=== PATIENT | female | born 1995 | race Caucasian/White ===

== ENCOUNTER → 2025-02-02 15:42 | Outpatient (REF) | payer OTHER, SELFPAY | LOC: PNTC 15:42 | PROVIDERS: ATTENDING PHYSICIAN Obstetrics & Gynecology | DX: O99.212 Obesity complicating pregnancy, second trimester (principal); E66.01 Morbid (severe) obesity due to excess calories; Z36.3 Encounter for antenatal screening for malformations; Z36.86 Encounter for antenatal screening for cervical length | CPT/HCPCS: 76811; 76817 ==

== ENCOUNTER → 2025-02-16 16:25 | Outpatient (REF) | payer OTHER, SELFPAY | LOC: PNTC 16:25 | PROVIDERS: ATTENDING PHYSICIAN Obstetrics & Gynecology | DX: O99.213 Obesity complicating pregnancy, third trimester (principal); E66.01 Morbid (severe) obesity due to excess calories; O35.5XX0 Maternal care for (suspected) damage to fetus by drugs, not applicable or unspecified | CPT/HCPCS: 76815 ==

== ENCOUNTER → 2025-03-02 17:14 | Outpatient (REF) | payer OTHER, SELFPAY | LOC: PNTC 17:14 | PROVIDERS: ATTENDING PHYSICIAN Obstetrics & Gynecology | DX: O99.213 Obesity complicating pregnancy, third trimester (principal) | CPT/HCPCS: 76816 ==

== ENCOUNTER 2025-03-10 12:40 | Observation (INO) | payer OTHER, SELFPAY ==
[2025-03-10 13:00] VITALS: BP 125/73; BMI 52.3
== END 2025-03-10 14:30 | disposition home or self-care (01) ==
LOC: LDRP 12:40
PROVIDERS: ADMITTING PHYSICIAN Student in an Organized Health Care Education/Training Program
DX: O36.8120 Decreased fetal movements, second trimester, not applicable or unspecified (principal); Z3A.26 26 weeks gestation of pregnancy; Z91.018 Allergy to other foods; O99.212 Obesity complicating pregnancy, second trimester
CPT/HCPCS: 59025; 76815; G0378

== ENCOUNTER → 2025-03-21 07:23 | Outpatient (REF) | payer OTHER, SELFPAY | LOC: PNTC 07:23 | PROVIDERS: ATTENDING PHYSICIAN Obstetrics & Gynecology | DX: Z34.82 Encounter for supervision of other normal pregnancy, second trimester (principal) | CPT/HCPCS: 36415; 86850; 86900; 86901; 96372; J2790 ==

== ENCOUNTER → 2025-03-30 08:07 | Outpatient (REF) | payer OTHER, SELFPAY | LOC: PNTC 08:07 | PROVIDERS: ATTENDING PHYSICIAN Obstetrics & Gynecology | DX: O35.5XX0 Maternal care for (suspected) damage to fetus by drugs, not applicable or unspecified (principal); O99.213 Obesity complicating pregnancy, third trimester; E66.01 Morbid (severe) obesity due to excess calories | CPT/HCPCS: 76816 ==

== ENCOUNTER 2025-04-20 09:12 | Observation (INO) | payer OTHER, SELFPAY ==
[2025-04-20 09:39] LABS: Hematocrit 30.9 % (37.0-47.0); Hemoglobin 10.3 g/dL (12.0-16.0); Mean Corp Hgb Conc. 33.3 g/dL (33.0-37.0); Mean Corpuscular Volume 85.4 fL (81.0-99.0); Platelet Count 239 10^3/uL (130-400); Red Cell Dist. Width 13.4 % (11.5-14.5)
[2025-04-20 09:51] VITALS: BP 149/90; BMI 53.4
[2025-04-20 09:57] LABS: ALT (SGPT) 12 U/L (0-35); AST (SGOT) 15 U/L (14-36); Albumin 3.6 g/dl (3.5-5.0); Alkaline Phosphatase 58 U/L (38-126); Blood Urea Nitrogen 6 mg/dl (7-17); Calcium 9.2 mg/dl (8.4-10.2); Carbon Dioxide 23 mmol/L (22-30); Chloride 108 mmol/L (98-107); Glucose 116 mg/dl (70-99); Potassium 3.7 mmol/L (3.5-5.1); Sodium 135 mmol/L (135-145); Total Protein 6.4 g/dl (6.3-8.2); eGFR > 60.00
== END 2025-04-20 12:50 | disposition home or self-care (01) ==
LOC: PNTC-IN 09:12
PROVIDERS: ADMITTING PHYSICIAN Student in an Organized Health Care Education/Training Program; ATTENDING PHYSICIAN Obstetrics & Gynecology
DX: O14.03 Mild to moderate pre-eclampsia, third trimester (principal); Z3A.32 32 weeks gestation of pregnancy; O99.213 Obesity complicating pregnancy, third trimester; Z91.018 Allergy to other foods; Z79.82 Long term (current) use of aspirin; Z79.899 Other long term (current) drug therapy
CPT/HCPCS: 59025; 76818; 80053; 82570; 84156; 85027; G0378

== ENCOUNTER → 2025-04-24 09:36 | Outpatient (REF) | payer OTHER, SELFPAY | LOC: PNTC 09:36 | PROVIDERS: ATTENDING PHYSICIAN Obstetrics & Gynecology | DX: O14.13 Severe pre-eclampsia, third trimester (principal) | CPT/HCPCS: 59025 ==

== ENCOUNTER → 2025-04-27 07:54 | Outpatient (REF) | payer OTHER, SELFPAY ==
[2025-04-27 08:46] LABS: Urine Character Clear (Clear)
[2025-04-27 08:47] LABS: Hematocrit 29.4 % (37.0-47.0); Hemoglobin 9.8 g/dL (12.0-16.0); Mean Corp Hgb Conc. 33.3 g/dL (33.0-37.0); Mean Corpuscular Volume 85.7 fL (81.0-99.0); Nucleated Red Blood Cells % 0 %; Platelet Count 229 10^3/uL (130-400); Red Cell Dist. Width 13.5 % (11.5-14.5)
[2025-04-27 10:33] LABS: ALT (SGPT) 12 U/L (0-35); AST (SGOT) 16 U/L (14-36); Albumin 3.4 g/dl (3.5-5.0); Alkaline Phosphatase 67 U/L (38-126); Blood Urea Nitrogen 6 mg/dl (7-17); Calcium 9.1 mg/dl (8.4-10.2); Carbon Dioxide 23 mmol/L (22-30); Chloride 106 mmol/L (98-107); Glucose 93 mg/dl (70-99); Potassium 4.1 mmol/L (3.5-5.1); Sodium 134 mmol/L (135-145); Total Protein 6.2 g/dl (6.3-8.2); Uric Acid 3.5 mg/dl (2.5-6.2); eGFR > 60.00
== END ==
LOC: PNTC 07:54
PROVIDERS: ATTENDING PHYSICIAN Obstetrics & Gynecology
DX: O99.213 Obesity complicating pregnancy, third trimester (principal); E66.01 Morbid (severe) obesity due to excess calories; O35.5XX0 Maternal care for (suspected) damage to fetus by drugs, not applicable or unspecified
CPT/HCPCS: 36415; 59025; 76816; 80053; 81003; 82570; 84156; 84550; 85025

== ENCOUNTER → 2025-05-01 16:23 | Outpatient (REF) | payer OTHER, SELFPAY | LOC: PNTC 16:23 | PROVIDERS: ATTENDING PHYSICIAN Student in an Organized Health Care Education/Training Program | DX: O14.03 Mild to moderate pre-eclampsia, third trimester (principal) | CPT/HCPCS: 59025 ==

== ENCOUNTER → 2025-05-04 07:50 | Outpatient (REF) | payer OTHER, SELFPAY ==
[2025-05-04 08:37] LABS: Hematocrit 30.0 % (37.0-47.0); Hemoglobin 10.0 g/dL (12.0-16.0); Mean Corp Hgb Conc. 33.3 g/dL (33.0-37.0); Mean Corpuscular Volume 86.5 fL (81.0-99.0); Nucleated Red Blood Cells % 0 %; Platelet Count 238 10^3/uL (130-400); Red Cell Dist. Width 13.2 % (11.5-14.5)
[2025-05-04 08:50] LABS: Urine Character Clear (Clear)
[2025-05-04 09:28] LABS: ALT (SGPT) 13 U/L (0-35); AST (SGOT) 17 U/L (14-36); Albumin 3.5 g/dl (3.5-5.0); Alkaline Phosphatase 71 U/L (38-126); Blood Urea Nitrogen 7 mg/dl (7-17); Calcium 9.1 mg/dl (8.4-10.2); Carbon Dioxide 21 mmol/L (22-30); Chloride 106 mmol/L (98-107); Glucose 109 mg/dl (70-99); Potassium 3.7 mmol/L (3.5-5.1); Sodium 135 mmol/L (135-145); Total Protein 6.4 g/dl (6.3-8.2); Uric Acid 3.7 mg/dl (2.5-6.2); eGFR > 60.00
[2025-05-04 10:17] LABS: Urine Red Blood Cell 0-2 /HPF (0-2); Urine Squamous Cell >30 /LPF (Few)
== END ==
LOC: PNTC 07:50
PROVIDERS: Obstetrics & Gynecology; ATTENDING PHYSICIAN Obstetrics & Gynecology
DX: O99.213 Obesity complicating pregnancy, third trimester (principal); E66.01 Morbid (severe) obesity due to excess calories; O35.5XX0 Maternal care for (suspected) damage to fetus by drugs, not applicable or unspecified
CPT/HCPCS: 36415; 59025; 76815; 80053; 81003; 81015; 82570; 84156; 84550; 85025

== ENCOUNTER → 2025-05-08 07:02 | Outpatient (REF) | payer OTHER, SELFPAY | LOC: PNTC 07:02 | PROVIDERS: ATTENDING PHYSICIAN Student in an Organized Health Care Education/Training Program | DX: O14.93 Unspecified pre-eclampsia, third trimester (principal) | CPT/HCPCS: 59025 ==

== ENCOUNTER → 2025-05-10 07:29 | Outpatient (REF) | payer OTHER, SELFPAY ==
[2025-05-10 08:05] LABS: Hematocrit 29.4 % (37.0-47.0); Hemoglobin 9.9 g/dL (12.0-16.0); Mean Corp Hgb Conc. 33.7 g/dL (33.0-37.0); Mean Corpuscular Volume 86.7 fL (81.0-99.0); Nucleated Red Blood Cells % 0 %; Platelet Count 247 10^3/uL (130-400); Red Cell Dist. Width 13.3 % (11.5-14.5)
[2025-05-10 08:08] LABS: Urine Character Clear (Clear)
[2025-05-10 08:47] LABS: ALT (SGPT) 13 U/L (0-35); AST (SGOT) 16 U/L (14-36); Albumin 3.3 g/dl (3.5-5.0); Alkaline Phosphatase 70 U/L (38-126); Blood Urea Nitrogen 8 mg/dl (7-17); Calcium 8.9 mg/dl (8.4-10.2); Carbon Dioxide 23 mmol/L (22-30); Chloride 105 mmol/L (98-107); Glucose 104 mg/dl (70-99); Potassium 3.7 mmol/L (3.5-5.1); Sodium 135 mmol/L (135-145); Total Protein 5.9 g/dl (6.3-8.2); eGFR > 60.00
[2025-05-10 10:09] LABS: Uric Acid 3.9 mg/dl (2.5-6.2)
== END ==
LOC: PNTC 07:29
PROVIDERS: ATTENDING PHYSICIAN Obstetrics & Gynecology
DX: O99.213 Obesity complicating pregnancy, third trimester (principal); E66.01 Morbid (severe) obesity due to excess calories; O35.5XX0 Maternal care for (suspected) damage to fetus by drugs, not applicable or unspecified
CPT/HCPCS: 36415; 59025; 76815; 80053; 81003; 81015; 82570; 84156; 84550; 85025

== ENCOUNTER → 2025-05-15 07:32 | Outpatient (REF) | payer OTHER, SELFPAY | LOC: PNTC 07:32 | PROVIDERS: ATTENDING PHYSICIAN Student in an Organized Health Care Education/Training Program | DX: O14.90 Unspecified pre-eclampsia, unspecified trimester (principal) | CPT/HCPCS: 59025 ==

== ENCOUNTER → 2025-05-17 07:26 | Outpatient (REF) | payer OTHER, SELFPAY ==
[2025-05-17 08:28] LABS: Urine Character Clear (Clear)
[2025-05-17 08:39] LABS: Hematocrit 31.9 % (37.0-47.0); Hemoglobin 10.5 g/dL (12.0-16.0); Mean Corp Hgb Conc. 32.9 g/dL (33.0-37.0); Mean Corpuscular Volume 85.8 fL (81.0-99.0); Nucleated Red Blood Cells % 0 %; Platelet Count 236 10^3/uL (130-400); Red Cell Dist. Width 14.0 % (11.5-14.5)
[2025-05-17 08:57] LABS: Urine Squamous Cell >30 /LPF (Few); Urine Urothelial Cell 0-2 /LPF (FEW)
[2025-05-17 08:59] LABS: ALT (SGPT) 14 U/L (0-35); AST (SGOT) 19 U/L (14-36); Albumin 3.3 g/dl (3.5-5.0); Alkaline Phosphatase 75 U/L (38-126); Blood Urea Nitrogen 5 mg/dl (7-17); Calcium 8.8 mg/dl (8.4-10.2); Carbon Dioxide 21 mmol/L (22-30); Chloride 107 mmol/L (98-107); Glucose 106 mg/dl (70-99); Potassium 3.8 mmol/L (3.5-5.1); Sodium 133 mmol/L (135-145); Total Protein 6.1 g/dl (6.3-8.2); eGFR > 60.00
[2025-05-17 09:14] LABS: Uric Acid 3.5 mg/dl (2.5-6.2)
== END ==
LOC: PNTC 07:26
PROVIDERS: Obstetrics & Gynecology; ATTENDING PHYSICIAN Obstetrics & Gynecology
DX: O99.213 Obesity complicating pregnancy, third trimester (principal); E66.01 Morbid (severe) obesity due to excess calories; O35.5XX0 Maternal care for (suspected) damage to fetus by drugs, not applicable or unspecified
CPT/HCPCS: 36415; 59025; 76816; 80053; 81003; 81015; 82570; 84156; 84550; 85025